=== PATIENT | male | born 1980 | race Caucasian/White ===

== ENCOUNTER 2016-10-11 00:09 | Emergency (ER) | payer OTHER ==
[2016-10-11] MEDS ORDERED: PSEUDOEPHEDRINE HCL 30 MG TABLET PO STA (01:15)
[2016-10-11] MEDS ORDERED: IBUPROFEN 400 MG TABLET (FP) PO ONE ×2 (01:15→01:35)
[2016-10-11] MEDS ORDERED: AMOX TR/POT CLAV 875MG/125MG TABLETS (FP) PO STA (01:15)
--- NOTE | 2016-10-11 01:15 | PDOC ---
History of Present Illness - General History Source: Patient <Tolu Figueroa - Last Filed: 10/11/16 01:19> - General History Source: Patient Exam Limitations: No Limitations - History of Present Illness Initial Comments: 10/11/16 01:22 The patient is a 35 year old male with significant past medical history of asthma who presents to the ED for 1 day of left ear pain. Patient denies any discharge coming from the ear. He also has complaints of generalized malaise and sore throat. Denies any sick contacts or recent travels. The patient denies fever, chills, cough, SOB, chest pain, and palpitations. The patient denies abdominal pain, nausea, vomiting, and diarrhea. Allergies: NKDA Social History: Current smoker (half ppd). No alcohol or drug use reported. Past Surgical History: None reported PCP: None reported <Alisson Law - Last Filed: 10/11/16 01:22> - General Stated Complaint: EAR PROBLEM Time Seen by Provider: 10/11/16 01:15 Past History - Past Medical History Asthma: Yes - Psycho/Social/Smoking Cessation Hx Anxiety: No Suicidal Ideation: No Smoking History: Current every day smoker Number of Cigarettes Smoked Daily: 10 Hx Alcohol Use: No Drug/Substance Use Hx: No Substance Use Type: None <Tolu Figueroa - Last Filed: 10/11/16 01:19> <Alisson Law - Last Filed: 10/11/16 01:22> - Past Medical History Allergies/Adverse Reactions: Allergies Allergy/AdvReac Type Severity Reaction Status Date / Time No Known Allergies Allergy Verified 04/03/15 14:06 Home Medications: Ambulatory Orders Albuterol Sulfate Inhaler - [Ventolin HFA Inhaler -] 1 - 2 inh PO Q4H PRN #1 inhaler 03/29/15 Cephalexin [Keflex] 1,000 mg PO BID #28 capsule 04/03/15 Sulfamethoxazole/Trimethoprim [Bactrim Ds Tablet] 1 each PO BID #14 tablet 04/03 Amox-Tr/K Cl [Augmentin 875Mg Tablet] 1 tab PO BID #20 tablet 10/11/16 Ibuprofen 800 mg PO TID #30 tablet 10/11/16 Pseudoephedrine HCl [Sudafed] 30 mg PO Q6H #20 tablet 10/11/16 Review of Systems - Review of Systems Able to Perform ROS?: Yes Comments:: 10/11/16 01:22 CONSTITUTIONAL: +generalized malaise Absent: fever, no chills, no fatigue EYES: Absent: visual changes ENT: +left ear pain, sore throat CARDIOVASCULAR: Absent: chest pain, no palpitations RESPIRATORY: Absent: cough, no SOB GI: Absent: abdominal pain, no nausea, no vomiting, no constipation, no diarrhea GENITOURINARY: Absent: dysuria, no frequency, no hematuria MUSCULOSKELETAL: Absent: back pain, no arthralgia, no myalgia SKIN: Absent: rash NEURO: Absent: headache <Alisson Law - Last Filed: 10/11/16 01:22> *Physical Exam - Physical Exam Comments: 10/11/16 01:22 GENERAL: Well-appearing, well-nourished. No apparent distress. HEENT: Normocephalic, atraumatic. PERRL, EOM intact. Injection, erythema, and otalgia to the left ear. Oropharynx is clear. CARDIOVASCULAR: Normal S1, S2. Regular rate and rhythm. PULMONARY: Clear to auscultation bilaterally. ABDOMEN: Soft, non-distended, non-tender. EXTREMITIES: Normal ROM in all four extremities. No gross deformities. SKIN: Warm, dry. No rash NEUROLOGICAL: No focal neurological deficits. <Alisson Law - Last Filed: 10/11/16 01:22> Medical Decision Making - Medical Decision Making 10/11/16 01:20 Dr. Figueroa: The scribe's documentation has been prepared under my direction and personally reviewed by me in its entirery. I confirm that the note above accurately reflects all work, treatment, procedures, and medical decision making performed by me.injection erythema and otalgia left ear <Tolu Figueroa - Last Filed: 10/11/16 01:19> *DC/Admit/Observation/Transfer - Discharge Dispostion Admit: No <Tolu Figueroa - Last Filed: 10/11/16 01:19> - Attestations Scribe Attestion: 10/11/16 01:22 Documentation prepared by Alisson Law, acting as medical/surgery registered nurse for Tolu Figueroa MD/DO. <Alisson Law - Last Filed: 10/11/16 01:22> Diagnosis at time of Disposition: Otitis media Qualifiers: Otitis media type: unspecified Laterality: left Chronicity: unspecified Qualified Code(s): H66.92 - Otitis media, unspecified, left ear - Discharge Dispostion Disposition: HOME Condition at time of disposition: Stable - Prescriptions Prescriptions: Amox-Tr/K Cl [Augmentin 875Mg Tablet] 1 tab PO BID #20 tablet Ibuprofen 800 mg PO TID #30 tablet Pseudoephedrine HCl [Sudafed] 30 mg PO Q6H #20 tablet - Referrals Referrals: Samuel Sylvester MD [Staff Physician] - Jack Hinson MD [Staff Physician] - - Patient Instructions Printed Discharge Instructions: DI for Otitis Media (Middle Ear Infection)- Child
[2016-10-11 01:28] VITALS: BP 121/72; PULSE 77; TEMP 97.8; BMI 26.3
[2016-10-11] MEDS ORDERED: AMOX TR/POT CLAV 875MG/125MG TABLETS (FP) ONE (01:35)
[2016-10-11] MEDS ORDERED: PSEUDOEPHEDRINE HCL 60 MG TABLET ONE (01:35)
== END 2016-10-11 01:38 | disposition home or self-care (01) ==
LOC: JER 00:09
DX: H66.92 Otitis media, unspecified, left ear (principal); F17.210 Nicotine dependence, cigarettes, uncomplicated
CPT/HCPCS: 99282-25

== ENCOUNTER 2016-12-13 18:22 | Emergency (ER) | payer OTHER ==
[2016-12-13 18:29] VITALS: BP 142/92; PULSE 89; TEMP 98; BMI 25.7
[2016-12-13] MEDS ORDERED: DIPHTH,PERTUSS(ACELL),TET 0.5 ML DISP.SYRIN IM ONE (19:14)
--- NOTE | 2016-12-13 19:20 | PDOC ---
History of Present Illness - General Chief Complaint: Laceration Stated Complaint: LACERATION TO HAND Time Seen by Provider: 12/13/16 18:58 - History of Present Illness Initial Comments: 12/13/16 19:14 CHIEF COMPLAINT: laceration HISTORY OF PRESENT ILLNESS: 36 yo M with no PMH presents to [facility] with laceration to R lateral hand. Patient states he was trying to mount something on the wall when his hand got caught between two pieces of steel and he got cut. Patient denies any fever, nausea, vomiting, diarrhea. Patient does not know when he last had a tetanus shot. No recent travel or sick contacts. PAST MEDICAL HISTORY: Denies past medical history FAMILY HISTORY: Denies SOCIAL HISTORY: Smoker, one pack daily. Denies alcohol, illicit drug use. SURGICAL HISTORY: Denies ALLERGIES: No known drug allergies REVIEW OF SYSTEMS General/Constitutional: Denies fever or chills. Gastrointestinal: Denies nausea, vomiting, diarrhea. Genitourinary: Denies dysuria, frequency, or change in urination. Musculoskeletal: Denies joint or muscle swelling or pain. Skin: Cut hand earlier today around 11 am. Neurologic: Denies headache, vertigo, loss of consciousness, or loss of sensation. PHYSICAL EXAM General Appearance: Well-appearing, appropriately dressed. No apparent distress. Respiratory/Chest: Lungs CTAB. Cardiovascular: RRR. S1, S2. Musculoskeletal/Extremities: Normal inspection. FROM of all extremities, normal capillary refill. Pelvis Stable. No CVA tenderness. No tenderness to extremities, pedal edema, swelling, erythema or deformity. Integumentary: 2 cm lac to lateral aspect of R hand. No tendon involvemement, full ROM to hand and fingers. Appropriate color, dry, warm. 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 Fully oriented, alert. Appropriate mood/affect. Motor strength 5/5. No appreciable EOM palsy, facial droop or sensory deficit. Past History - Past Medical History Allergies/Adverse Reactions: Allergies Allergy/AdvReac Type Severity Reaction Status Date / Time No Known Allergies Allergy Verified 12/13/16 18:27 Home Medications: Ambulatory Orders Albuterol Sulfate Inhaler - [Ventolin HFA Inhaler -] 1 - 2 inh PO Q4H PRN #1 inhaler 03/29/15 Cephalexin [Keflex] 1,000 mg PO BID #28 capsule 04/03/15 Sulfamethoxazole/Trimethoprim [Bactrim Ds Tablet] 1 each PO BID #14 tablet 04/03 Amox-Tr/K Cl [Augmentin 875Mg Tablet] 1 tab PO BID #20 tablet 10/11/16 Ibuprofen 800 mg PO TID #30 tablet 10/11/16 Pseudoephedrine HCl [Sudafed] 30 mg PO Q6H #20 tablet 10/11/16 Asthma: Yes - Psycho/Social/Smoking Cessation Hx Anxiety: No Suicidal Ideation: No Smoking History: Current every day smoker Number of Cigarettes Smoked Daily: 20 Information on smoking cessation initiated: No Hx Alcohol Use: No Drug/Substance Use Hx: No Substance Use Type: None *Physical Exam - Vital Signs Last Vital Signs Temp Pulse Resp BP Pulse Ox 98 F 89 18 142/92 98 12/13/16 18:24 12/13/16 18:24 12/13/16 18:24 12/13/16 18:24 12/13/16 18:24 Procedures - Consent Consent obtained: Verbal - Laceration/Wound Repair Right Lateral Hand Wound Length: to 2.5 cm Wound Explored: clean, no foreign body present Wound's Depth, Shape: superficial, irregular, flap Irrigated w/ Saline: Yes Betadine Prep: Yes Anesthesia: 1% Lidocaine Amount of Anesthetic (ccs): 4 Wound Repaired With: Sutures Suture Size/Type: 5:0 Number of Sutures: 5 Sterile Dressing Applied: Yes (xeroform dressing, kerlix gauze) Medical Decision Making - Medical Decision Making 12/13/16 19:40 36 yo M with no PMH presents to [facility] with laceration to R lateral hand. -Tdap IM -lac repair (see note) *DC/Admit/Observation/Transfer Diagnosis at time of Disposition: Laceration - Discharge Dispostion Disposition: HOME Condition at time of disposition: Stable Admit: No - Patient Instructions Printed Discharge Instructions: DI for Laceration Repair Additional Instructions: As discussed, please keep area of laceration clean and dry for the next 24-48 hours. Afterwards you may wash with mild soap and water. Return to [facility] or your primary care doctor for suture removal in 10-14 days. If you experience any redness, swelling, streaking, warmth, to the site of the cut, or develop fever, nausea, vomiting, or diarrhea, please return to the ER.
== END 2016-12-13 20:17 | disposition home or self-care (01) ==
LOC: JER 18:22 → JERFT 18:22
PROC: 0HQFXZZ Repair Right Hand Skin, External Approach (ICD-10-PCS; principal; 2016-12-13)
PROC: 3E0234Z Introduction of Serum, Toxoid and Vaccine into Muscle, Percutaneous Approach (ICD-10-PCS; 2016-12-13)
DX: S61.411A Laceration without foreign body of right hand, initial encounter (principal); W23.0XXA Caught, crushed, jammed, or pinched between moving objects, initial encounter; Y93.89 Activity, other specified; Y92.89 Other specified places as the place of occurrence of the external cause
CPT/HCPCS: 90715; 99281-25

== ENCOUNTER 2021-04-19 06:18 | Emergency (ER) | payer OTHER ==
[2021-04-19 06:25] VITALS: BP 136/78; PULSE 92; TEMP 97.9; BMI 29.0
[2021-04-19] MEDS ORDERED: SODIUM CHLORIDE 1,000 ML IV STA (08:04)
[2021-04-19 09:46] LABS: BASO % 0.6 % (0-2.0); EOS % 2.2 % (0-4.5); HEMATOCRIT 46.4 % (35.4-49); HEMOGLOBIN 15.9 GM/dL (11.7-16.9); LYMPH % 20.2 % (8-40); MCH 30.9 pg (25.7-33.7); MCHC 34.3 g/dl (32.0-35.9); MEAN PLT VOLUME 7.9 fl (7.5-11.1); MONO % 7.3 % (3.8-10.2); NEUT % 69.7 % (42.8-82.8); PLATELET COUNT 322 10^3/uL (134-434); RBC 5.16 M/mm3 (4.00-5.60); RDW 12.6 % (11.9-15.9)
[2021-04-19 11:11] LABS: EPI CELLS 3 /uL (0-25.1); HYALINE CASTS 0 /uL (0-3.1); URINE APPEARANCE CLEAR; URINE BACTERIA 2 /uL (0-1359); URINE BILIRUBIN NEGATIVE (NEGATIVE); URINE COLOR DK YELLOW; URINE GLUCOSE (UA) NEGATIVE (NEGATIVE); URINE KETONE TRACE (NEGATIVE); URINE LEUK ESTERASE NEGATIVE (NEGATIVE); URINE NITRITE NEGATIVE (NEGATIVE); URINE PROTEIN NEGATIVE (NEGATIVE); URINE RBC 14 /uL (0-23.9); URINE UROBILINOGEN 0.2 mg/dL (0.2-1.0); URINE WBC 4 /uL (0-25.8)
[2021-04-19 11:16] LABS: CHLORIDE 105 mmol/L (98-107); SODIUM 131 mmol/L (136-145)
[2021-04-19 11:17] LABS: ALBUMIN 3.9 g/dl (3.4-5.0); BLOOD UREA NITROGEN 13.9 mg/dL (7-18); CALCIUM 9.2 mg/dL (8.5-10.1); CO2 25 mmol/L (21-32); GLUCOSE,RANDOM 90 mg/dL (74-106)
[2021-04-19 11:21] LABS: CREATININE 1.3 mg/dL (0.55-1.3)
[2021-04-19 11:22] LABS: BILIRUBIN,TOTAL 0.5 mg/dL (0.2-1); TOT PROT 9.2 g/dl (6.4-8.2)
[2021-04-19 11:23] LABS: ALK PHOS 96 U/L (45-117)
[2021-04-19 12:36] LABS: ANION GAP 1 MMOL/L (8-16); SGOT/AST 129 U/L (15-37); SGPT/ALT 78 U/L (13-61)
== END 2021-04-19 13:08 | disposition home or self-care (01) ==
LOC: JER 06:18
PROC: 3E0337Z Introduction of Electrolytic and Water Balance Substance into Peripheral Vein, Percutaneous Approach (ICD-10-PCS; principal; 2021-04-19)
DX: R42 Dizziness and giddiness (principal)
CPT/HCPCS: 36415; 70450-TC; 80053; 81003; 82550; 82553; 84484; 85025; 93005; 93010; 99285-25; C9803; U0003; U0005

== ENCOUNTER 2021-09-29 09:23 | Emergency (ER) | payer OTHER ==
[2021-09-29 09:43] VITALS: TEMP 97.6; BMI 28.2
[2021-09-29] MEDS ORDERED: ACETAMINOPHEN 500 MG TABLET (FP) PO ONE (10:25)
[2021-09-29] MEDS ORDERED: SODIUM CHLORIDE 1,000 ML IV STA (10:25)
[2021-09-29] MEDS ORDERED: ACETAMINOPHEN 500 MG TABLET (FP) ONE (10:46)
[2021-09-29 11:04] LABS: BASO % 0.3 % (0-2.0); EOS % 2.3 % (0-4.5); HEMATOCRIT 44.3 % (35.4-49); HEMOGLOBIN 15.3 GM/dL (11.7-16.9); LYMPH % 15.9 % (8-40); MCH 30.4 pg (25.7-33.7); MCHC 34.6 g/dl (32.0-35.9); MEAN CELL VOLUME 87.9 fl (80-96); MEAN PLT VOLUME 7.4 fl (7.5-11.1); MONO % 8.6 % (3.8-10.2); NEUT % 72.9 % (42.8-82.8); PLATELET COUNT 309 10^3/uL (134-434); RBC 5.03 M/mm3 (4.00-5.60); RDW 12.6 % (11.9-15.9)
[2021-09-29 11:28] LABS: BLOOD UREA NITROGEN 20.9 mg/dL (7-18); CALCIUM 9.1 mg/dL (8.5-10.1); MAGNESIUM 2.3 mg/dL (1.8-2.4)
[2021-09-29 11:33] LABS: BILIRUBIN,TOTAL 0.4 mg/dL (0.2-1); TOT PROT 7.7 g/dl (6.4-8.2)
[2021-09-29 14:50] VITALS: BP 128/79; PULSE 70
== END 2021-09-29 14:50 | disposition home or self-care (01) ==
LOC: JER 09:23
PROC: 3E0337Z Introduction of Electrolytic and Water Balance Substance into Peripheral Vein, Percutaneous Approach (ICD-10-PCS; principal; 2021-09-29)
DX: R42 Dizziness and giddiness (principal); R07.89 Other chest pain
CPT/HCPCS: 36415; 71046-TC-FY; 80053; 83735; 84484; 85025; 85379; 87804; 93005; 93010; 99285-25

== ENCOUNTER 2022-10-16 10:55 | Emergency (ER) | payer SELFPAY ==
[2022-10-16 11:07] VITALS: RESP 18; TEMP 99; BMI 27.7
[2022-10-16] MEDS ORDERED: ACETAMINOPHEN 500 MG TABLET (FP) PO ONE (12:22)
[2022-10-16] MEDS ORDERED: ACETAMINOPHEN 325 MG TABLET (FP) ONE (12:23)
[2022-10-16 13:31] VITALS: BP 134/91; PULSE 81
== END 2022-10-16 13:46 | disposition home or self-care (01) ==
LOC: JER 10:55
DX: R51.9 Headache, unspecified (principal); R09.81 Nasal congestion; H92.02 Otalgia, left ear; Q04.3 Other reduction deformities of brain
CPT/HCPCS: 70450-TC; 99284-25

== ENCOUNTER 2023-06-27 23:42 | Emergency (ER) | payer OTHER ==
[2023-06-27 23:53] VITALS: BP 150/100; PULSE 78; RESP 18; TEMP 97.5; BMI 28.2
[2023-06-28] MEDS ORDERED: KETOROLAC TROMETHAMINE 30 MG/1 ML VIAL ONE (00:17)
[2023-06-28] MEDS: KETOROLAC TROMETHAMINE 30 MG/1 ML VIAL IM ONE (00:19)
[2023-06-28] MEDS ORDERED: AMOX TR/POT CLAV 875MG/125MG TABLETS (FP) ONE (00:21)
[2023-06-28] MEDS: AMOX TR/POT CLAV 875MG/125MG TABLETS (FP) PO ONE (00:24)
== END 2023-06-28 00:24 | disposition home or self-care (01) ==
LOC: JERFT 23:42 → JER 23:42 → JERFT 06-28 00:24
PROC: 3E0233Z Introduction of Anti-inflammatory into Muscle, Percutaneous Approach (ICD-10-PCS; principal; 2023-06-28)
DX: H66.002 Acute suppurative otitis media without spontaneous rupture of ear drum, left ear (principal); H92.02 Otalgia, left ear; R09.81 Nasal congestion; R05.9 Cough, unspecified
CPT/HCPCS: 99284-25

== ENCOUNTER 2023-11-09 17:26 | Emergency (ER) | payer OTHER ==
[2023-11-09 17:47] VITALS: BP 127/87; PULSE 104; RESP 18; TEMP 98; BMI 29.7
[2023-11-09 18:24] LABS: BASO % 0.5 % (0-2.0); EOS % 3.7 % (0-4.5); HEMATOCRIT 42.9 % (35.4-49); HEMOGLOBIN 14.7 GM/dL (11.7-16.9); LYMPH % 17.1 % (8-40); MCHC 34.3 g/dl (32.0-35.9); MEAN CELL VOLUME 90.5 fl (80-96); MEAN PLT VOLUME 7.1 fl (7.5-11.1); MONO % 6.9 % (3.8-10.2); NEUT % 71.8 % (42.8-82.8); PLATELET COUNT 284 10^3/uL (134-434); RBC 4.75 M/mm3 (4.00-5.60); RDW 12.7 % (11.9-15.9)
[2023-11-09 18:46] LABS: POTASSIUM 4.2 mmol/L (3.5-5.1)
[2023-11-09 18:47] LABS: CALCIUM 9.6 mg/dL (8.5-10.1)
[2023-11-09 18:48] LABS: BLOOD UREA NITROGEN 16.2 mg/dL (7-18)
[2023-11-09 18:51] LABS: CREATININE 1.1 mg/dL (0.55-1.3)
[2023-11-09] MEDS ORDERED: KETOROLAC TROMETHAMINE 30 MG/1 ML VIAL ONE (19:18)
[2023-11-09] MEDS ORDERED: AMPICILLIN NA/SULBACTAM NA 1.5 GM VIAL ONE (19:18)
[2023-11-09] MEDS: KETOROLAC TROMETHAMINE 30 MG/1 ML VIAL IVPUSH ONE (19:42)
[2023-11-09] MEDS: AMPICILLIN NA/SULBACTAM NA 3 GM in SODIUM CHLORIDE 100 ML IVPB ONE (19:43)
== END 2023-11-09 20:17 | disposition home or self-care (01) ==
LOC: JER 17:26 → JERFT 17:26
PROC: 3E03329 Introduction of Other Anti-infective into Peripheral Vein, Percutaneous Approach (ICD-10-PCS; principal; 2023-11-09)
PROC: 3E0333Z Introduction of Anti-inflammatory into Peripheral Vein, Percutaneous Approach (ICD-10-PCS; 2023-11-09)
DX: L03.116 Cellulitis of left lower limb (principal)
CPT/HCPCS: 36415; 73630-TC-LT; 80048; 85025; 99284-25

== ENCOUNTER 2024-09-13 18:03 | Emergency (ER) | payer OTHER ==
[2024-09-13 18:11] VITALS: TEMP 97.9; BMI 28.2
[2024-09-13 18:48] VITALS: RESP 18
[2024-09-13] MEDS: SODIUM CHLORIDE 0.9% 500 ML INFUS.BAG IV ONE (18:52)
[2024-09-13 18:53] LABS: ABSOLUTE IMMATURE GRANULOCYTES 0.05 x10^3/uL (0.0-0.031); BASOPHILS # 0.08 x10^3/uL (0.01-0.08); EOSINOPHIL % 1.8 % (0.8-7.0); EOSINOPHILS # 0.22 x10^3/uL (0.04-0.54); HEMATOCRIT 47.1 % (40.1-51.0); HEMOGLOBIN 15.9 g/dL (13.7-17.5); MCHC 33.8 g/dl (32.3-36.5); MEAN CELL VOLUME 88.5 fl (79.0-92.2); MEAN PLT VOLUME 9.2 fl (9.4-12.4); MONOCYTE # 0.86 x10^3/uL (0.30-0.82); MONOCYTE % 6.9 % (5.3-12.2); PLATELET COUNT 290 x10^3/uL (163-337); RDW 11.9 % (12.1-15.9)
[2024-09-13 19:26] LABS: POTASSIUM 3.6 mmol/L (3.5-5.1)
[2024-09-13 19:29] LABS: BLOOD UREA NITROGEN 20.2 mg/dL (7-18); CALCIUM 9.9 mg/dL (8.5-10.1)
[2024-09-13 19:34] LABS: BILIRUBIN,TOTAL 0.7 mg/dL (0.2-1); TOT PROT 7.9 g/dl (6.4-8.2)
[2024-09-13 19:48] VITALS: BP 134/85; PULSE 99
[2024-09-13 20:24] LABS: HCV DIAGNOSTIC IN-HOUSE W/RFLX NON-REACTIVE (NONREACTIVE); HIV INTERPRETATION NEGATIVE (NEGATIVE)
== END 2024-09-13 21:35 | disposition home or self-care (01) ==
LOC: JER 18:03
DX: M62.82 Rhabdomyolysis (principal); I10 Essential (primary) hypertension; R00.2 Palpitations; R06.00 Dyspnea, unspecified; R07.89 Other chest pain; R53.1 Weakness
CPT/HCPCS: 36415; 71045-TC-FY; 80053; 82550; 82553; 84484; 85025; 86803; 87389; 93005; 93010; 99284-25

== ENCOUNTER 2024-09-16 23:15 | Emergency (ER) | payer OTHER ==
[2024-09-16 23:36] VITALS: TEMP 98.8; BMI 28.2
[2024-09-17 00:44] LABS: ABSOLUTE IMMATURE GRANULOCYTES 0.03 x10^3/uL (0.0-0.031); BASOPHILS # 0.05 x10^3/uL (0.01-0.08); EOSINOPHIL % 2.4 % (0.8-7.0); EOSINOPHILS # 0.25 x10^3/uL (0.04-0.54); HEMATOCRIT 45.6 % (40.1-51.0); HEMOGLOBIN 15.5 g/dL (13.7-17.5); MEAN CELL VOLUME 89.1 fl (79.0-92.2); MEAN PLT VOLUME 9.1 fl (9.4-12.4); MONOCYTE # 0.89 x10^3/uL (0.30-0.82); MONOCYTE % 8.7 % (5.3-12.2); PLATELET COUNT 281 x10^3/uL (163-337)
[2024-09-17 00:47] LABS: EPI CELLS 2 /uL (0-25.1); HYALINE CASTS 0 /uL (0-3.1); URINE APPEARANCE CLEAR; URINE BACTERIA 0 /uL (0-1359); URINE BILIRUBIN NEGATIVE (NEGATIVE); URINE COLOR YELLOW; URINE GLUCOSE (UA) NEGATIVE (NEGATIVE); URINE KETONE NEGATIVE (NEGATIVE); URINE LEUK ESTERASE NEGATIVE (NEGATIVE); URINE NITRITE NEGATIVE (NEGATIVE); URINE PROTEIN NEGATIVE (NEGATIVE); URINE RBC 18 /uL (0-23.9); URINE UROBILINOGEN 0.2 mg/dL (0.2-1.0); URINE WBC 2 /uL (0-25.8)
[2024-09-17 01:12] LABS: POTASSIUM 3.9 mmol/L (3.5-5.1)
[2024-09-17 01:14] LABS: CALCIUM 9.5 mg/dL (8.5-10.1)
[2024-09-17 01:15] LABS: ALBUMIN 3.9 g/dl (3.4-5.0); BLOOD UREA NITROGEN 14.2 mg/dL (7-18)
[2024-09-17 01:20] LABS: BILIRUBIN,TOTAL 0.6 mg/dL (0.2-1); TOT PROT 7.7 g/dl (6.4-8.2)
[2024-09-17] MEDS ORDERED: LACTATED RINGERS SOLUTION 1000 ML INFUS.BAG IV ONE (01:40)
[2024-09-17 02:00] VITALS: BP 151/105; PULSE 78; RESP 16
== END 2024-09-17 02:00 | disposition home or self-care (01) ==
LOC: JER 23:15
DX: R00.2 Palpitations (principal)
CPT/HCPCS: 0241U-QW; 36415; 71045-TC-FY; 80053; 81003; 82550; 82553; 82962; 84439; 84443; 84484; 85025; 87086; 93005; 93010; 99285-25

== ENCOUNTER 2024-09-20 15:36 | Emergency (ER) | payer OTHER ==
[2024-09-20 15:58] VITALS: TEMP 98.4; BMI 25.4
[2024-09-20 17:00] LABS: ABSOLUTE IMMATURE GRANULOCYTES 0.03 x10^3/uL (0.0-0.031); BASOPHILS # 0.08 x10^3/uL (0.01-0.08); EOSINOPHIL % 0.6 % (0.8-7.0); EOSINOPHILS # 0.07 x10^3/uL (0.04-0.54); HEMATOCRIT 46.4 % (40.1-51.0); HEMOGLOBIN 15.7 g/dL (13.7-17.5); MCHC 33.8 g/dl (32.3-36.5); MEAN CELL VOLUME 88.5 fl (79.0-92.2); MEAN PLT VOLUME 9.1 fl (9.4-12.4); MONOCYTE # 0.81 x10^3/uL (0.30-0.82); MONOCYTE % 7.1 % (5.3-12.2); PLATELET COUNT 295 x10^3/uL (163-337); RDW 11.9 % (12.1-15.9)
[2024-09-20 17:10] LABS: INR 1.11 (0.83-1.09); PROTHROMBIN TIME (PATIENT) 12.2 SEC (9.7-13.0)
[2024-09-20 17:13] LABS: ACTIVATED PTT 30.5 SECONDS (25.2-36.5)
[2024-09-20 17:19] LABS: URINE APPEARANCE CLEAR; URINE BILIRUBIN NEGATIVE (NEGATIVE); URINE COLOR YELLOW; URINE GLUCOSE (UA) NEGATIVE (NEGATIVE); URINE KETONE 1+ (NEGATIVE); URINE LEUK ESTERASE NEGATIVE (NEGATIVE); URINE NITRITE NEGATIVE (NEGATIVE); URINE PROTEIN NEGATIVE (NEGATIVE); URINE UROBILINOGEN 0.2 mg/dL (0.2-1.0)
[2024-09-20 17:28] LABS: METHADONE, UR NEGATIVE (NEGATIVE)
[2024-09-20 17:29] LABS: COCAINE, UR NEGATIVE (NEGATIVE); OPIATES, URI NEGATIVE (NEGATIVE); PHENCYCLIDINE,URINE NEGATIVE (NEGATIVE); URINE BARBITURATES NEGATIVE (NEGATIVE); URINE BENZODIAZEPINES NEGATIVE (NEGATIVE)
[2024-09-20 17:30] LABS: URINE AMPHETAMINES NEGATIVE (NEGATIVE)
[2024-09-20 17:31] LABS: POTASSIUM 3.7 mmol/L (3.5-5.1)
[2024-09-20 17:33] LABS: CALCIUM 10.1 mg/dL (8.5-10.1)
[2024-09-20 17:34] LABS: ALBUMIN 4.3 g/dl (3.4-5.0)
[2024-09-20 17:39] LABS: BILIRUBIN,TOTAL 0.9 mg/dL (0.2-1); TOT PROT 8.1 g/dl (6.4-8.2)
[2024-09-20] MEDS: SODIUM CHLORIDE 0.9% 500 ML INFUS.BAG IV ONE (18:33)
[2024-09-20 21:07] VITALS: BP 142/81; PULSE 62; RESP 17
== END 2024-09-20 21:09 | disposition home or self-care (01) ==
LOC: JER 15:36
DX: R07.89 Other chest pain (principal); R00.2 Palpitations; R06.02 Shortness of breath
CPT/HCPCS: 36415; 71046-TC-FY; 80053; 80307; 81003; 82550; 82553; 83735; 84439; 84443; 84484; 85025; 85379; 85610; 85730; 93005; 93010; 99285-25